=== PATIENT | female | born 1975 | race Caucasian/White ===

== ENCOUNTER 2022-11-26 14:59 | Emergency (ER) | payer SELFPAY ==
--- NOTE | 2022-11-26 15:26 | EXP.UTC ---
Discharge Plan Disposition Patient Disposition: Home, Self-Care Condition: Good Referrals Follow up/Referrals: Provider,Referral, MD [Primary Care Provider] - See instructions Activity Restrictions/Add. Instructions Additional Instructions/Restrictions: Follow up with your regular doctor. GO TO THE ER FOR ANY WORSENING SYMPTOMS Clinical Impressions Clinical Impression: Exposure to hepatitis B Instructions Patient Instructions: Hepatitis B Discharge ED Provider: Heath Maharaj [facility] General Stated complaint: possibly exposed to hepatitis b. Time Seen by Provider: 11/26/22 15:26 History of Present Illness Provider Complaint: She is here to see about having lab work drawn after she was possibly exposed to hepatitis b. Related Data Allergies Allergy/AdvReac Type Severity Reaction Status Date / Time No Known Allergies Allergy Verified 11/26/22 15:40 [facility] Disclaimer: The information contained in this section may have been updated after the patient was seen, as this information can be updated by other users. Social History Smoking Status: Former smoker alcohol intake: never current occupational status: employed Travel in the last 8 weeks: None ROS Obtained: Yes All systems reviewed & no additional complaints except as documented Constitutional Constitutional: Denies chills and Denies fever(s) Eyes Eyes: Denies eye discharge ENT Ears, Nose, Mouth, and Throat: Denies dizziness, Denies otalgia and Denies sore throat Cardiovascular Cardiovascular: Denies chest pain Respiratory Respiratory: Denies shortness of breath, Denies chest congestion, Denies cough, Denies stridor and Denies wheezing Gastrointestinal Gastrointestingal: Denies nausea or vomiting Musculoskeletal Musculoskeletal: Reports system reviewed and no additional complaints, except as documented and Denies arthralgias Integumentary/Breasts Skin/Breast: Denies rash Neurologic Neurologic: Denies dizziness and Denies paresthesias Allergic/Immunologic Allergic/Immunologic: Denies wheezing Physical Exam General General appearance: alert and in no apparent distress Head Head exam: atraumatic, normocephalic and normal inspection Eye Eye exam: Present normal appearance, PERRL and EOMI ENT ENT exam: Present normal exam, normal oropharynx, mucous membranes moist, TM's normal bilaterally and normal external ear exam Neck Neck exam: Present normal inspection, full ROM and trachea midline; Absent meningismus or lymphadenopathy Chest Chest inspection: Present normal inspection and symmetric chest wall rise; Absent tenderness Respiratory Respiratory exam: Present normal lung sounds bilaterally; Absent respiratory distress Cardiovascular Cardiovascular exam: Present regular rate and normal rhythm; Absent JVD Abdominal Exam Abdominal exam: Present soft and normal bowel sounds; Absent distention, tenderness or guarding Extremities Exam Extremities exam: Present normal inspection, full ROM and normal capillary refill; Absent calf tenderness Back Exam Back exam: Present normal inspection; Absent tenderness Neurological Exam Neurological exam: Present alert and oriented X3 Psychiatric Psychiatric exam: Present normal affect and normal mood Skin Skin exam: Present warm, dry, intact and normal color Lymphatic Lymphatic Findings: no adenopathy Medical Decision Making Medical Records Medical records reviewed: No I reviewed the patient's medical records. Flash Inquiry Pt receiving controlled substance: No
[2022-11-26 15:30] VITALS: BP 116/86; PULSE 78; RESP 18; TEMP 37.1; O2SAT 100; BMI 26.2
[2022-11-26 16:01] VITALS: BP 116/86; PULSE 78; RESP 18; TEMP 37.1; O2SAT 100
[2022-12-01 13:10] LABS: HBsAg Screen Negative (Negative); HCV Ab Reactive (Non Reactive); Hep A Ab, IGM Negative (Negative); Hep B Core Ab, IgM Negative (Negative)
== END 2022-11-26 16:01 | disposition home or self-care (01) ==
PROVIDERS: Emergency Provider Nurse Practitioner Family
DX: Z20.5 Contact with and (suspected) exposure to viral hepatitis (principal)
CPT/HCPCS: 80074; 99202; 99212; G0463